=== PATIENT | female | born 1980 | race Caucasian/White ===

== ENCOUNTER 2017-02-11 19:50 | Emergency (ER) | payer OTHER ==
[2017-02-11 20:09] VITALS: TEMP 98.1; BMI 23.6
--- NOTE | 2017-02-11 20:24 | PDOC ---
History of Present Illness - General History Source: Patient Exam Limitations: No Limitations - History of Present Illness Initial Comments: 02/11/17 20:26 The patient is a 36 year old female with no significant past medical history, who presents to the ED with pain in her left foot that began earlier today. She states she was able to run three miles early this morning. Later in the day, her daughter stepped on her left foot, which triggered the pain. Over the last few hours, she has had more significant pain with movement of the left foot. She also complains of mild right foot pain after tripping. <Gatito Martinez - Last Filed: 02/11/17 21:53> <Keyanna Nolan - Last Filed: 02/14/17 02:57> - General Chief Complaint: Pain, Acute Stated Complaint: LEFT FOOT PAIN Time Seen by Provider: 02/11/17 20:01 Past History <Gatito Martinez - Last Filed: 02/11/17 21:53> - Past Medical History GI Disorders: Yes (CROHN'S DSE) - Surgical History Abdominal Surgery: Yes (COLON RESECTION, PERMANENT OSTOMY) - Psycho/Social/Smoking Cessation Hx Suicidal Ideation: No Smoking History: Never smoked Hx Alcohol Use: No Substance Use Type: None <Keyanna Nolan - Last Filed: 02/14/17 02:57> - Past Medical History Allergies/Adverse Reactions: Allergies Allergy/AdvReac Type Severity Reaction Status Date / Time Sulfa (Sulfonamide Allergy Verified 02/11/17 19:54 Antibiotics) Home Medications: Ambulatory Orders Adalimumab [Humira] 40 mg SQ WEEKLY 02/11/17 Nuva Ring 02/11/17 Review of Systems - Review of Systems Able to Perform ROS?: Yes Comments:: 02/11/17 20:26 CONSTITUTIONAL: Absent: fever, chills, diaphoresis, generalized weakness, malaise, loss of appetite HEENT: Absent: rhinorrhea, nasal congestion, throat pain, throat swelling, difficulty swallowing, mouth swelling, ear pain, eye pain, visual Changes CARDIOVASCULAR: Absent: chest pain, syncope, palpitations, irregular heart rate, lightheadedness , peripheral edema RESPIRATORY: Absent: cough, shortness of breath, dyspnea with exertion, orthopnea, wheezing, stridor, hemoptysis GASTROINTESTINAL: Absent: abdominal pain, abdominal distension, nausea, vomiting, diarrhea, constipation, melena, hematochezia GENITOURINARY: Absent: dysuria, frequency, urgency, hesitancy, hematuria, flank pain, genital pain MUSCULOSKELETAL: Present: right and left foot pain. Absent: myalgia, joint swelling SKIN: Absent: rash, itching, pallor HEMATOLOGIC/IMMUNOLOGIC: Absent: easy bleeding, easy bruising, lymphadenopathy, frequent infections ENDOCRINE: Absent: unexplained weight gain, unexplained weight loss, heat intolerance, cold intolerance NEUROLOGIC: Absent: headache, focal weakness or paresthesias, dizziness, unsteady gait, seizure, mental status changes, bladder or bowel incontinence PSYCHIATRIC: Absent: anxiety, depression, suicidal or homicidal ideation, hallucinations. <Gatito Martinez - Last Filed: 02/11/17 21:53> *Physical Exam - Vital Signs Last Vital Signs Temp Pulse Resp BP Pulse Ox 98.1 F 67 18 138/88 100 02/11/17 19:50 02/11/17 19:50 02/11/17 19:50 02/11/17 19:50 02/11/17 19:50 - Physical Exam Comments: 02/11/17 20:27 GENERAL: The patient is awake, alert, and fully oriented, in no acute distress. HEAD:[Normal with no signs of trauma. EYES: Pupils equal, round and reactive to light, extraocular movements intact, sclera anicteric, conjunctiva clear. EXTREMITIES: Mild tenderness to the base of the 5th metatarsal of the left foot. No ecchymosis. Mild edema to the lateral aspect of the left foot. Normal range of motion of all extremities. NEUROLOGICAL: Normal speech, normal gait. PSYCH: Normal mood, normal affect. SKIN: Warm, Dry, normal turgor, no rashes or lesions noted. <Gatito Martinez - Last Filed: 02/11/17 21:53> - Vital Signs Last Vital Signs Temp Pulse Resp BP Pulse Ox 98.1 F 67 18 138/88 100 02/11/17 19:50 02/11/17 19:50 02/11/17 19:50 02/11/17 19:50 02/11/17 19:50 <Keyanna Nolan - Last Filed: 02/14/17 02:57> Progress Note - Progress Note Progress Note: Documentation has been prepared under my direction and personally reviewed by me in its entirety. I attest that this documented accurately reflects all work, treatment, procedures and medical decision making performed by me. <Keyanna Nolan - Last Filed: 02/14/17 02:57> Medical Decision Making - Medical Decision Making 36 y.o woman with PMH of Crohn's disease(s/p colectomy) presents with progressive left foot pain with weightbearing/movement after minor injury this morning. Patient initially had minimal pain after her daughter stepped on foot. Exam as noted Left foot xray interpreted by Imaging recreational therapy technician: no fractures or other acute process Clinical presentation consistent with acute foot sprain Jordon wrap applied and cast shoe fitted. The patient still has pain with weight bearing. Crutches given and crutch walking instruction given. Patient advised to elevate and ice foot as much as possible for the next 2 days. She has no orthopedist: [facility] referral information given to patient. She should see them if pain is persistent <Keyanna Nolan - Last Filed: 02/14/17 02:57> *DC/Admit/Observation/Transfer - Attestations Scribe Attestion: 02/11/17 20:28 Documentation prepared by Gatito Martinez, acting as medical office technology instructor for Keyanna Nolan MD. <Gatito Martinez - Last Filed: 02/11/17 21:53> <Keyanna Nolan - Last Filed: 02/14/17 02:57> Diagnosis at time of Disposition: Sprain of foot, left Qualifiers: Encounter type: initial encounter Qualified Code(s): S93.602A - Unspecified sprain of left foot, initial encounter - Discharge Dispostion Disposition: HOME Condition at time of disposition: Stable - Referrals Referrals: Oren Chong MD [Staff Physician] - 1 week - Patient Instructions Printed Discharge Instructions: DI for Foot Sprain Additional Instructions: ice/ elevation left foot as much as possible for 48 hours jordon wrap during day for one week hard-soled shoe for ambulation as needed Tylenol as needed for pain followup with orthopedic group([facility]) if persistent pain
[2017-02-11 20:38] VITALS: BP 110/59; PULSE 79
== END 2017-02-11 22:30 | disposition home or self-care (01) ==
LOC: FER 19:50
DX: S93.602A Unspecified sprain of left foot, initial encounter (principal); W50.0XXA Accidental hit or strike by another person, initial encounter; Y93.89 Activity, other specified; Y92.9 Unspecified place or not applicable
CPT/HCPCS: 73630-TC-LT; 99283-25